=== PATIENT | male | born 1990 | race Two or more races ===

== ENCOUNTER 2018-06-26 03:41 | Emergency (ER) | payer BC ==
[~2018-06-26] VITALS: Ht 172.7 cm; Wt 98.5 kg
--- NOTE | 2018-06-26 04:00 | NUR ---
ASSUMED CARE OF PATIENT. PATIENT REPORTS CHEST PAIN 10/23 THAT STARTED AT 0330. VS STABLE. 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 SINSU TACH NOTED. CALL LIGHT IN PLACE WILL CONTINUE TO MONITOR.
--- NOTE | 2018-06-26 04:35 | NUR ---
PT RESTING IN ROOM. REGULAR RESP. NO ACUTE DISTRESS NOTED. WILL CONTINUE TO MONITOR.
[2018-06-26] MEDS ORDERED: ASPIRIN 81 MG TABLET CHEW PO ONE (05:00)
[2018-06-26] MEDS ORDERED: ASPIRIN 81 MG TABLET CHEW ONE (05:02)
[2018-06-26] MEDS ORDERED: ESCI10TA10 PO (05:04)
--- NOTE | 2018-06-26 05:09 | NUR ---
LAB IN ROOM
[2018-06-26 05:29] LABS: BASOPHILS # (AUTO) 0.13 x10^3/uL (0-0.1); BASOPHILS % (AUTO) 1 % (0-1); EOSINOPHILS # (AUTO) 0.18 x10^3/uL (0-0.4); EOSINOPHILS % (AUTO) 2 % (1-7); LYMPHOCYTES # (AUTO) 2.46 x10^3/uL (1-3.4); LYMPHOCYTES % (AUTO) 24 % (22-44); MD NO; MEAN CORPUSCULAR HEMOGLOBIN 30.4 pg (27.5-34.5); MEAN CORPUSCULAR HGB CONC 34.3 g/dL (33.2-36.2); MEAN CORPUSCULAR VOLUME 88.5 fL (81-97); MEAN PLATELET VOLUME 7.6 fL (7.4-10.4); MONOCYTES # (AUTO) 0.67 x10^3/uL (0.2-0.8); MONOCYTES % (AUTO) 7 % (2-9); NEUTROPHILS # (AUTO) 6.75 x10^3/uL (1.8-6.8); NEUTROPHILS % (AUTO) 66 % (42-75); PLATELET COUNT 344 x10^3/uL (130-400); RED BLOOD COUNT 5.22 x10^6/uL (4.38-5.82); RED CELL DISTRIBUTION WIDTH 13.2 % (9.4-14.8)
--- NOTE | 2018-06-26 05:39 | NUR ---
PT RESTING IN ROOM. REGULAR RESP. NO ACUTE DISTRESS NOTED. CALL LIGHT IN PLACE. WILL CONTINUE TO MONITOR.
[2018-06-26 05:41] LABS: ALBUMIN 3.9 g/dL (3.4-5.0); ANION GAP 5 mmol/L (5-15); CALCIUM 8.8 mg/dL (8.5-10.1); CHLORIDE 106 mmol/L (98-107)
[2018-06-26 05:47] LABS: CREATININE 1.31 mg/dL (0.7-1.3); TROPONIN I < 0.015 ng/mL (0.000-0.045)
[2018-06-26 06:15] VITALS: BP 141/88
== END 2018-06-26 06:17 | disposition home or self-care (01) ==
LOC: ED 05:19
DX: R07.89 Other chest pain (principal); M54.9 Dorsalgia, unspecified; I10 Essential (primary) hypertension
CPT/HCPCS: 36415; 71045; 80048; 82040; 84484; 85025; 85379; 93005; 99284